=== PATIENT | female | born 1995 | race Caucasian/White ===

== ENCOUNTER 2017-01-04 08:12 | Day surgery (SDC) | payer BC, MEDICAID ==
[~2017-01-04 08:12] MED LIST: Buffered Lidocaine 0.9% SYRIN* 5 ML/SYR SYRINGE INTRADERM ONE; Dexamethasone IV* 4 MG/ML 1 ML (4 MG) IV SLOW PU ONE; Famotidine IV* 10 MG/ML 2 ML (20 mg) IV ONE
[2017-01-04] MEDS ORDERED: Famotidine IV* 10 MG/ML 2 ML (20 mg) ONE (08:17)
[2017-01-04] MEDS ORDERED: Dexamethasone IV* 4 MG/ML 1 ML (4 MG) ONE (08:17)
[2017-01-04] MEDS ORDERED: Buffered Lidocaine 0.9% SYRIN* 5 ML/SYR SYRINGE ONE (08:18)
[2017-01-04] MEDS ORDERED: oxyCODONE/Acetamin 5/325 MG* TAB PO PRN (09:58)
[2017-01-04] MEDS ORDERED: HYDROcodone/ACETAMIN 5-325 MG* 1 TAB PO PRN (09:58)
[2017-01-04] MEDS ORDERED: PROCHLORPERAZINE INJ 5 MG/ML 2 ML VIAL IV PRN (09:58)
[2017-01-04] MEDS ORDERED: fentaNYL* 50 MCG/ML 2 ML VIAL (100 MCG VIAL) ONE ×3 (10:08→10:47)
[2017-01-04] MEDS ORDERED: Lidocaine 2% PF * 5 ML VIAL ONE (10:08)
[2017-01-04] MEDS ORDERED: Propofol* 10 MG/ML 20 ML BTL IV PUSH ONE (10:08)
[2017-01-04] MEDS ORDERED: Mivacurium Chloride* 20 MG/10 ML VIAL IV ONE (10:08)
[2017-01-04] MEDS ORDERED: Ondansetron INJ* 2 MG/ML VIAL ONE (10:21)
[2017-01-04] MEDS: fentaNYL* 50 MCG/ML 2 ML VIAL (100 MCG VIAL) IV PRN ×4 (10:40→11:27)
[2017-01-04] MEDS ORDERED: oxyCODONE ORAL.SOLN* 5 MG/5 ML UDC ONE (11:31)
[2017-01-04] MEDS ORDERED: Acetaminophen ADULT LIQ* 650 MG/20.3 ML UDC ONE (11:33)
[2017-01-04 12:25] VITALS: BP 113/75
--- NOTE | 2017-01-04 23:22 | OP ---
DATE OF OPERATION: 01/04/17 - SDS DATE OF : [birth year] SURGEON: Pablo Snider MD ANESTHESIOLOGIST: Anel De Leon MD ANESTHESIA: General endotracheal anesthesia. PRE-OP DIAGNOSES: Acute recurrent strep, tonsillitis. POST-OP DIAGNOSIS: Acute recurrent strep, tonsillitis. OPERATIVE PROCEDURE: Tonsillectomy. COMPLICATIONS: None. DISPOSITION: Good. SPECIMEN: Left and right tonsils. BLOOD LOSS: Minimal. DESCRIPTION OF PROCEDURE: The patient was taken to the operating room and placed in the supine position on the operating table. General anesthesia was induced and she was orotracheally intubated, turned and draped for surgery. A Eliane-Delgado mouth gag was inserted, retraction was applied, suspended from the Arana stand. The right tonsil was grasped, manual traction was applied. Using Bovie cautery, it was dissected along its capsule, removing it from underlying pharyngeal musculature. The left tonsil was grasped, manual traction was applied. Again using Bovie cautery, dissected along its capsule, removing it from the underlying pharyngeal musculature. Hemostasis was assured in both tonsillar fossa using the suction cautery. Orogastric tube inserted into the stomach. Stomach contents suctioned. The Eliane-Delgado mouth gag was released and removed. The patient tolerated the procedure well. No complications. Transferred to the recovery room in stable condition. [id number] #: [id number]
== END 2017-01-04 12:25 | disposition home or self-care (01) ==
LOC: OR 08:12
PROVIDERS: ATTEND Otolaryngology
DX: J03.01 Acute recurrent streptococcal tonsillitis (principal)
CPT/HCPCS: 81025; 88304; A9270-GY; J1100; J2405; J2704; J3010